=== PATIENT | male | born 1970 | race African-American/Black ===

== ENCOUNTER 2017-10-08 22:31 | Emergency (ER) | payer SELFPAY ==
[~2017-10-08] VITALS: Ht 175.3 cm; Wt 102.1 kg
[2017-10-08 23:07] LABS: HEMATOCRIT 38.3 % (38.0-50.0); HEMOGLOBIN 12.5 G/DL (12.5-16.6); MCH 23.9 PG (29.0-34.0); MCHC 32.6 G/DL (30.0-36.0); MCV 73.1 FL (86-99); PLATELET COUNT 211 K/uL (156-360); RBC DIS.WIDTH-SD 43.8 % (39-53); RED BLOOD COUNT 5.24 M/uL (4.00-5.50); WHITE BLOOD COUNT 6.3 K/uL (4.1-10.2)
[2017-10-08 23:13] LABS: CHLORIDE 106 mEq/L (99-109); POTASSIUM 4.1 mEq/L (3.7-5.4); SODIUM 138 mEq/L (136-147)
[2017-10-08 23:14] LABS: GLUCOSE 138 mg/dL (70-99)
[2017-10-08 23:18] LABS: GFR ESTIMATE (CALCULATED) > 59 mL/min/ (58.99-99999)
[2017-10-08 23:19] LABS: UREA NITROGEN (BUN) 15 mg/dL (9-23)
[2017-10-09] MEDS ORDERED: COMPAZINE10 MG PO (00:28)
[2017-10-09 01:22] VITALS: BP 122/83
== END 2017-10-09 01:24 | disposition home or self-care (01) ==
LOC: EME 22:31
PROVIDERS: Nurse Practitioner Family
DX: G43.909 Migraine, unspecified, not intractable, without status migrainosus (principal); I10 Essential (primary) hypertension; J45.909 Unspecified asthma, uncomplicated; Z87.891 Personal history of nicotine dependence; Z88.8 Allergy status to other drugs, medicaments and biological substances
CPT/HCPCS: 70450; 80048; 85027; 99281; 99285; J0780; J1200; J1885; J2765; J7030